=== PATIENT | male | born 1955 | race Caucasian/White ===

== ENCOUNTER → 2016-10-18 | Outpatient (CLI) | payer BC, OTHER | END | disposition home or self-care (01) | LOC: CFH 14:31 | PROVIDERS: ATTEND Internal Medicine | DX: R05 Cough (principal) | CPT/HCPCS: 71020 ==

== ENCOUNTER → 2019-10-01 | Outpatient (CLI) | payer BC | END | disposition home or self-care (01) | LOC: RAD 11:36 | PROVIDERS: ATTEND Internal Medicine | DX: R05 Cough (principal) | CPT/HCPCS: 71046 ==